=== PATIENT | male | born 1950 | race Caucasian/White ===

== ENCOUNTER 2021-01-24 02:15 | Outpatient (CLI) | payer MEDICARE | END 2021-01-24 02:16 | disposition critical access hospital (66) | LOC: EMS 02:15 | DX: R53.1 Weakness (principal); L08.89 Other specified local infections of the skin and subcutaneous tissue | CPT/HCPCS: A0425; A0429 ==

== ENCOUNTER 2021-01-24 02:38 | Emergency (ER) | payer MEDICARE ==
--- NOTE | 2021-01-24 02:47 | ED Physician Documentation ---
History of Present Illness - Stated complaint Stated Complaint: GLF/ WEAKNESS - History obtained from History obtained from: Patient - History of Present Illness Timing: Yesterday Pain level max: 0 Pain level now: 0 Improved by: no ameliorating factors Worsened by: no exacerbating factors Associated symptoms: generalized weakness, right great toe infection/necrosis - Additonal information Additional information: BIBA. Patient says fell yesterday at approximately 5 PM due to generalized weakness. He denies injury, denies LOC. He says he was too weak to get back up (BLE weakness) and he crawled around his house until he eventually decided to call 911 at approximately 1 AM. He says he has had increasing generalized weakness over the past 3 months with similar previous falls over this time frame. He says he has not seen a doctor for a few years and cannot find one that is taking new patients. Patient lives alone. He says that when he had one of these falls 3 weeks ago, he abraded his right great toe and that it has gradually become increasingly discolored and purulent Review of Systems Constitutional: reports: Reviewed and negative Eyes: reports: Reviewed and negative Ears: reports: Reviewed and negative Nose: reports: Reviewed and negative Cardiac: reports: Reviewed and negative Respiratory: reports: Reviewed and negative GI: reports: Reviewed and negative : denies: Dysuria, Frequency, Incontinent Skin: reports: Rash (right foot erythema) Musculoskeletal: reports: Extremity swelling. denies: Extremity pain Neurologic: reports: Generalized weakness. denies: Focal weakness, Numbness, Difficulty speaking, Altered mental status, Headache, Head injury PD PAST MEDICAL HISTORY - Past Medical History Past Medical History: No - Past Surgical History Past Surgical History: No - Present Medications Home Medications: Ambulatory Orders Medication Instructions Recorded Confirmed No Known Home Medications 01/24/21 01/24/21 - Allergies Allergies/Adverse Reactions: Allergies Allergy/AdvReac Type Severity Reaction Status Date / Time No Known Drug Allergies Allergy Verified 01/24/21 02:49 - Living Situation Living Situation: reports: Alone Living Arrangement: reports: At home - Social History Does the pt smoke?: No PD ED PE NORMAL - Vitals Vital signs reviewed: Yes - General General: Alert and oriented X 3, No acute distress, Well developed/nourished - HEENT HEENT: Atraumatic, PERRL, EOMI, Moist mucous membranes - Neck Neck: No bony TTP - Cardiac Cardiac: RRR, No murmur - Respiratory Respiratory: No respiratory distress, Clear bilaterally - Abdomen Abdomen: Soft, Non tender, Non distended - Back Back: No spinal TTP - Neuro Neuro: Alert and oriented X 3, dietitian therapeutic 2-12 intact Eye Opening: Spontaneous Motor: Obeys Commands Verbal: Oriented GCS Score: 15 PD ED PE EXPANDED - Extremities Extremities: Other (right great toe is necrotic with purulent drainage and surrounding cellulitis) Results - Vitals Vitals: Vital Signs - 24 hr 01/24/21 01/24/21 01/24/21 02:45 02:56 02:58 Temperature 36.2 C L Heart Rate 108 H 93 Respiratory 16 99 H Rate Blood Pressure 149/95 H 144/76 H O2 Saturation 97 96 01/24/21 01/24/21 01/24/21 03:53 04:48 05:21 Temperature Heart Rate 97 88 93 Respiratory 16 16 16 Rate Blood Pressure 117/84 H 128/80 119/80 O2 Saturation 98 98 97 01/24/21 01/24/21 05:35 06:35 Temperature Heart Rate 101 H 88 Respiratory 16 16 Rate Blood Pressure 116/61 133/79 H O2 Saturation 97 98 Oxygen O2 Source Room air - Labs Labs: Laboratory Tests 01/24/21 01/24/21 01/24/21 02:50 02:50 02:50 WBC 11.8 H RBC 4.33 L Hgb 14.4 Hct 41.2 L MCV 95.2 H MCH 33.3 H MCHC 35.0 RDW 13.0 Plt Count 344 MPV 9.8 Neut # (Auto) 9.2 H Lymph # (Auto) 1.7 [place] # (Auto) 0.8 Eos # (Auto) 0.0 Baso # (Auto) 0.1 Absolute Nucleated RBC 0.00 Nucleated RBC % 0.0 PT INR APTT Sodium 134 L Potassium 3.7 Chloride 96 L Carbon Dioxide 29 Anion Gap 9.0 BUN 11 Creatinine 0.9 Estimated GFR (MDRD) 83 L Glucose 137 H Lactic Acid Calcium 8.8 Phosphorus 2.7 Magnesium 2.0 Total Bilirubin 1.4 H AST 35 ALT 48 Alkaline Phosphatase 82 Total Creatine Kinase 140 CK-MB (CK-2) 5.3 B-Natriuretic Peptide Total Protein 7.6 Albumin 2.5 L Globulin 5.1 H Albumin/Globulin Ratio 0.5 L Lipase 29 TSH Urine Color Urine Clarity Urine pH Ur Specific [place] Urine Protein Urine Glucose (UA) Urine Ketones Urine Occult Blood Urine Nitrite Urine Bilirubin Urine Urobilinogen Ur Leukocyte Esterase Ur Microscopic Review Urine Culture Comments Nasal Adenovirus (PCR) Nasal B. parapertussis DNA (PCR) Nasal Coronavir 229E PCR Nasal Coronavir HKU1 PCR Nasal Coronavir NL63 PCR Nasal Coronavir OC43 PCR Nasal Enterovir/Rhinovir PCR Nasal Influenza B PCR Nasal Influenza A PCR Nasal Parainfluen 1 PCR Nasal Parainfluen 2 PCR Nasal Parainfluen 3 PCR Nasal Parainfluen 4 PCR Nasal RSV (PCR) Nasal B.pertussis DNA PCR Nasal C.pneumoniae (PCR) Nael Human Metapneumo PCR Nasal M.pneumoniae (PCR) Nasal SARS-CoV-2 (PCR) 01/24/21 01/24/21 01/24/21 02:50 02:50 03:05 WBC RBC Hgb Hct MCV MCH MCHC RDW Plt Count MPV Neut # (Auto) Lymph # (Auto) [place] # (Auto) Eos # (Auto) Baso # (Auto) Absolute Nucleated RBC Nucleated RBC % PT INR APTT Sodium Potassium Chloride Carbon Dioxide Anion Gap BUN Creatinine Estimated GFR (MDRD) Glucose Lactic Acid 1.4 Calcium Phosphorus Magnesium Total Bilirubin AST ALT Alkaline Phosphatase Total Creatine Kinase CK-MB (CK-2) B-Natriuretic Peptide Total Protein Albumin Globulin Albumin/Globulin Ratio Lipase TSH 3.76 Urine Color Urine Clarity Urine pH Ur Specific [place] Urine Protein Urine Glucose (UA) Urine Ketones Urine Occult Blood Urine Nitrite Urine Bilirubin Urine Urobilinogen Ur Leukocyte Esterase Ur Microscopic Review Urine Culture Comments Nasal Adenovirus (PCR) NOT DETECTED Nasal B. parapertussis DNA (PCR) NOT DETECTED Nasal Coronavir 229E PCR NOT DETECTED Nasal Coronavir HKU1 PCR NOT DETECTED Nasal Coronavir NL63 PCR NOT DETECTED Nasal Coronavir OC43 PCR NOT DETECTED Nasal Enterovir/Rhinovir PCR NOT DETECTED Nasal Influenza B PCR NOT DETECTED Nasal Influenza A PCR NOT DETECTED Nasal Parainfluen 1 PCR NOT DETECTED Nasal Parainfluen 2 PCR NOT DETECTED Nasal Parainfluen 3 PCR NOT DETECTED Nasal Parainfluen 4 PCR NOT DETECTED Nasal RSV (PCR) NOT DETECTED Nasal B.pertussis DNA PCR NOT DETECTED Nasal C.pneumoniae (PCR) NOT DETECTED Nael Human Metapneumo PCR NOT DETECTED Nasal M.pneumoniae (PCR) NOT DETECTED Nasal SARS-CoV-2 (PCR) NOT DETECTED 01/24/21 01/24/21 01/24/21 03:12 03:12 05:20 WBC RBC Hgb Hct MCV MCH MCHC RDW Plt Count MPV Neut # (Auto) Lymph # (Auto) [place] # (Auto) Eos # (Auto) Baso # (Auto) Absolute Nucleated RBC Nucleated RBC % PT 16.3 H INR 1.5 H APTT 28.1 Sodium Potassium Chloride Carbon Dioxide Anion Gap BUN Creatinine Estimated GFR (MDRD) Glucose Lactic Acid Calcium Phosphorus Magnesium Total Bilirubin AST ALT Alkaline Phosphatase Total Creatine Kinase CK-MB (CK-2) B-Natriuretic Peptide 223 H Total Protein Albumin Globulin Albumin/Globulin Ratio Lipase TSH Urine Color DARK YELLOW Urine Clarity CLEAR Urine pH 6.0 Ur Specific [place] 1.010 Urine Protein NEGATIVE Urine Glucose (UA) NEGATIVE Urine Ketones NEGATIVE Urine Occult Blood NEGATIVE Urine Nitrite NEGATIVE Urine Bilirubin NEGATIVE Urine Urobilinogen >=8.0 H Ur Leukocyte Esterase NEGATIVE Ur Microscopic Review NOT INDICATED Urine Culture Comments NOT INDICATED Nasal Adenovirus (PCR) Nasal B. parapertussis DNA (PCR) Nasal Coronavir 229E PCR Nasal Coronavir HKU1 PCR Nasal Coronavir NL63 PCR Nasal Coronavir OC43 PCR Nasal Enterovir/Rhinovir PCR Nasal Influenza B PCR Nasal Influenza A PCR Nasal Parainfluen 1 PCR Nasal Parainfluen 2 PCR Nasal Parainfluen 3 PCR Nasal Parainfluen 4 PCR Nasal RSV (PCR) Nasal B.pertussis DNA PCR Nasal C.pneumoniae (PCR) Nael Human Metapneumo PCR Nasal M.pneumoniae (PCR) Nasal SARS-CoV-2 (PCR) - Rads (name of study) chest xray Radiology: Prelim report reviewed, See rad report right foot xray Radiology: Prelim report reviewed, See rad report PD MEDICAL DECISION MAKING - ED course Complexity details: reviewed results, re-evaluated patient, considered differential, d/w patient ED course: Patient presents with generalized weakness, subacute, that has resulted in recurrent falls over past few months with increasing difficulty getting back up. He was unable to get up after falling yesterday afternoon and eventually called 911. He lives alone. On exam, he has a necrotic right great toe with strong malodor and purulent discharge as well as cellulitis of the foot. D/W Dr. Allison ([facility] hospitalist); his concern for admission here is lack of MRI and lack of orthopedic coverage until Wednesday. D/W BEATRIZ Godfrey ( hospitalist); she is willing to take patient but subsequently is told there are no beds and ED is boarding multiple patients. She says patient will be put on a waiting list. [facility] is full/no beds. Liliana/Simón contacted; no beds available, will put patient on waiting list. D/W Dr. Munoz, hospitalist at [facility]; he accepts transfer. Departure - Departure Disposition: 02 Transfer Acute Care Hosp Clinical Impression: Osteomyelitis Condition: Stable
[2021-01-24 03:09] LABS: BASOPHILS # (AUTO) 0.1 10^3/uL (0.0-0.1); BASOPHILS % (AUTO) 0.4 %; EOSINOPHILS % (AUTO) 0.2 %; HCT - HEMATOCRIT 41.2 % (42.0-52.0); HGB - HEMOGLOBIN 14.4 g/dL (14.0-18.0); LYMPHOCYTES # (AUTO) 1.7 10^3/uL (1.5-3.5); LYMPHOCYTES % (AUTO) 14.5 %; MEAN CORPUSCULAR HEMOGLOBIN 33.3 pg (27.0-31.0); MEAN CORPUSCULAR VOLUME 95.2 fL (80.0-94.0); MEAN PLATELET VOLUME 9.8 fL (7.4-11.4); MONOCYTES # (AUTO) 0.8 10^3/uL (0.0-1.0); MONOCYTES % (AUTO) 7.1 %; NEUTROPHILS # (AUTO) 9.2 10^3/uL (1.5-6.6); NEUTROPHILS % (AUTO) 77.4 %; PLT - PLATELET COUNT 344 10^3/uL (130-450); RED BLOOD COUNT 4.33 10^6/uL (4.70-6.10); WHITE BLOOD COUNT 11.8 x10^3/uL (4.8-10.8)
[2021-01-24 03:27] LABS: ALBUMIN 2.5 g/dL (3.2-5.5); ALBUMIN/GLOBULIN RATIO 0.5 (1.0-2.2); BILIRUBIN,TOTAL 1.4 mg/dL (0.2-1.0); CALCIUM 8.8 mg/dL (8.5-10.3); CREATININE 0.9 mg/dL (0.6-1.2); PHOSPHORUS 2.7 mg/dL (2.5-4.6); POTASSIUM 3.7 mmol/L (3.5-5.0); TOTAL PROTEIN 7.6 g/dL (6.7-8.2)
[2021-01-24 03:30] LABS: INR 1.5 (0.8-1.2); PT - PROTHROMBIN TIME 16.3 secs (9.9-12.6)
[2021-01-24 03:37] LABS: PARTIAL THROMBOPLASTIN TIME 28.1 secs (24.9-33.3)
[2021-01-24 04:02] LABS: B. PARAPERTUSSIS- RESP PCR PAN NOT DETECTED; B. PERTUSSIS- RESP PCR PANEL NOT DETECTED; C. PNEUMONIAE- RESP PCR PANEL NOT DETECTED; CORONAVIRUS 229E-RESP PCR NOT DETECTED; CORONAVIRUS HKU1-RESP PCR NOT DETECTED; CORONAVIRUS NL63-RESP PCR NOT DETECTED; CORONAVIRUS OC43-RESP PCR NOT DETECTED; HUMAN METAPNEUMOVIRUS NOT DETECTED; INFLUENZA A- RESP PCR PANEL NOT DETECTED; INFLUENZA B - RESP PCR PANEL NOT DETECTED; M. PNEUMONIAE- RESP PCR PANEL NOT DETECTED; PARAINFLUENZA VIRUS 1 NOT DETECTED; PARAINFLUENZA VIRUS 2 NOT DETECTED; PARAINFLUENZA VIRUS 3 NOT DETECTED; PARAINFLUENZA VIRUS 4 NOT DETECTED; RHINOVIRUS/ENTEROVIRUS NOT DETECTED; RSV- RESP PCR PANEL NOT DETECTED; SARS-CoV-2 -RESP PCR PANEL NOT DETECTED
[2021-01-24 05:45] LABS: BILIRUBIN,URINE NEGATIVE (NEGATIVE); GLUCOSE, URINE (UA) NEGATIVE (NEGATIVE); KETONES,URINE (UA) NEGATIVE (NEGATIVE); LEUKOCYTE ESTERASE, URINE NEGATIVE (NEGATIVE); NITRITE,URINE NEGATIVE (NEGATIVE); OCCULT BLOOD,URINE NEGATIVE (NEGATIVE); PROTEIN,URINE NEGATIVE (NEGATIVE); UROBILINOGEN,URINE >=8.0 E.U./dL (NORMAL)
[2021-01-24 05:47] LABS: CLARITY,URINE CLEAR (CLEAR)
[2021-01-24] MEDS ORDERED: cefTRIAXone 2 GM in SODIUM CHLORIDE 0.9% MINIBAG 100 ML IV STA (09:18)
[2021-01-24 10:16] VITALS: BP 119/74
[2021-01-24] MEDS ORDERED: VANCOMYCIN INJ 2 GM in SODIUM CHLORIDE 0.9% 500 ML IV SCH (10:30)
--- NOTE | 2021-01-24 12:08 | XRAY Report ---
PROCEDURE: Chest 2 View X-Ray INDICATIONS: weakness TECHNIQUE: 2 view(s) of the chest. COMPARISON: None. FINDINGS: Surgical changes and devices: None. Lungs and pleura: No pleural effusions or pneumothorax. Lungs are clear. Mediastinum: Mediastinal contours are normal. Heart size is enlarged. Bones and chest wall: No suspicious bony abnormalities. Soft tissues appear unremarkable. IMPRESSION: No acute pulmonary process. The above findings are concordant with preliminary report. Reviewed by: Elena Noriega MD on 01/24/2021 12:07 PM PDT Approved by: Elena Noriega MD on 01/24/2021 12:07 PM PDT Station ID: [id number]
--- NOTE | 2021-01-24 12:29 | XRAY Report ---
PROCEDURE: Foot 2 View RT INDICATIONS: necrotic great toe TECHNIQUE: 2 views of the foot were acquired. COMPARISON: None FINDINGS: Bones: There is sclerosis within the distal aspect of the first metatarsal extending into the first p roximal and distal phalanx. There is dislocation at the DIP joint with the distal phalanx dislocated medially. There are areas of lucency most notable at the base of the proximal phalanx as well as area s of mottled lucency throughout both the distal and proximal phalanx. Ill-defined areas of cortical l ucency are also noted at the distal first metatarsal. Soft tissues: No tibiotalar joint effusion. Achilles tendon appears normal. Soft tissue prominence is noted overlying the first digit. Soft tissue air is noted. IMPRESSION: Areas of lucency within the first digit as described above suspicious for osteomyelitis, with appeara nce of soft tissue air, likely related to infection. The above findings are concordant with preliminary report. Reviewed by: Elena Noriega MD on 01/24/2021 12:28 PM PDT Approved by: Elena Noriega MD on 01/24/2021 12:28 PM PDT Station ID: [id number]
== END 2021-01-24 11:23 | disposition short-term general hospital (02) ==
LOC: ED 02:38
DX: M86.9 Osteomyelitis, unspecified (principal); Z91.81 History of falling; Z20.822 Contact with and (suspected) exposure to COVID-19
CPT/HCPCS: 36415; 71046; 73620; 80053; 81003; 82550; 82553; 83605; 83690; 83735; 83880; 84100; 84443; 85025; 85610; 85730; 87070; 87181; 87205; 87631; 93005; 96365; 96375; 99284; 99285; J3370; 0202U; 81001; 87086

== ENCOUNTER 2021-01-24 11:20 | Outpatient (CLI) | payer MEDICARE | END 2021-01-24 11:21 | disposition short-term general hospital (02) | LOC: EMS 11:20 | PROVIDERS: ATTEND Emergency Medicine | DX: M86.8X7 Other osteomyelitis, ankle and foot (principal) | CPT/HCPCS: A0425; A0426 ==

== ENCOUNTER 2021-02-28 15:00 | Outpatient (CLI) | payer MEDICARE | END 2021-02-28 23:59 | disposition home or self-care (01) | LOC: LAB.R 15:00 | DX: R17 Unspecified jaundice (principal) | CPT/HCPCS: 82247 ==